=== PATIENT | female | born 1950 | race Caucasian/White ===

== ENCOUNTER 2022-04-12 14:31 | Emergency (ER) | payer MEDICAID ==
[~2022-04-12] VITALS: Ht 165.1 cm; Wt 83.9 kg
--- NOTE | 2022-04-12 14:50 | NUR ---
BIBFAMILY C/O RIGHT FLANK AND RLQ PAIN X 2 HRS. PLACED IN BED, AAOX4, BREATHING EVEN AND UNLABORED SATURATING AT 96%RA, IN PAIN 9/10 PS.
--- NOTE | 2022-04-12 15:45 | NUR ---
BLOOD DRAWN AND SENT TO LAB
[2022-04-12] MEDS ORDERED: ONDANSETRON HCL/PF 4 MG/2 ML VIAL IVP ONE ×2 (16:00→21:00)
[2022-04-12] MEDS ORDERED: MORPHINE SULFATE INJ 2 MG/ML DISP.SYRIN IV ONE ×2 (16:00→21:00)
--- NOTE | 2022-04-12 16:00 | NUR ---
PATIENT TAKEN TO CT VIA BEAR
[2022-04-12 16:04] LABS: BASOPHILS % (AUTO) 0.1 % (0.0-2.0); EOSINOPHILS % (AUTO) 0.1 % (0.0-6.0); HEMATOCRIT 46 % (33-45); HEMOGLOBIN 14.7 g/dL (11.5-14.8); LYMPHOCYTES # (AUTO) 1.3 K/uL (0.8-4.8); LYMPHOCYTES % (AUTO) 7.6 % (20.0-44.0); MEAN CORPUSCULAR HGB CONC 32 g/dl (31.0-36.0); MEAN CORPUSCULAR VOLUME 87 fL (82-100); MONOCYTES # (AUTO) 0.5 K/uL (0.1-1.30); MONOCYTES % (AUTO) 3.3 % (2.0-12.0); NEUTROPHILS # (AUTO) 14.7 K/uL (1.8-8.9); NEUTROPHILS % (AUTO) 88.9 % (43.0-81.0); PLATELET COUNT (AUTO) 257 K/uL (150-450); RED BLOOD CELL COUNT(AUTO) 5.25 MIL/uL (4.0-5.2); WHITE BLOOD COUNT (AUTO) 16.5 K/uL (4.3-11.0)
[2022-04-12] MEDS ORDERED: MORPHINE SULFATE INJ 4 MG/ML DISP.SYRIN ONE ×2 (16:14→20:54)
[2022-04-12] MEDS ORDERED: ONDANSETRON HCL/PF 4 MG/2 ML VIAL ONE ×2 (16:14→20:54)
[2022-04-12 16:16] LABS: BILIRUBIN,URINE NEGATIVE (NEGATIVE); COLOR,URINE YELLOW (YELLOW); LEUKOCYTE ESTERASE ,URINE NEGATIVE (NEGATIVE); NITRITE, URINE NEGATIVE (NEGATIVE); PROTEIN,URINE 1+ mg/dl (NEGATIVE); UGLUCOSE NEGATIVE (NEGATIVE); UROBILINOGEN,URINE 0.2 EU/dL (0.2)
[2022-04-12 16:36] LABS: CALCIUM, SERUM 9.2 mg/dL (8.5-10.1); CREATININE 1.1 mg/dL (0.6-1.3); POTASSIUM 3.7 mmol/L (3.5-5.1)
[2022-04-12 16:38] LABS: BACTERIA,URINE RARE /HPF (None Seen); MUCUS,URINE Few /LPF (None Seen); RBC,URINE 81-100 /HPF (0-2); WBC,URINE 0-2 /HPF (0-3)
[2022-04-12 16:51] LABS: BILIRUBIN,DIRECT 0.1 mg/dL (0.0-0.2); BILIRUBIN,TOTAL 0.4 mg/dL (0.2-1.0); TOTAL PROTEIN, SERUM 7.9 g/dL (6.4-8.2)
--- NOTE | 2022-04-12 18:28 | NUR ---
SWAB FOR COVID19 SENT TO LAB
--- NOTE | 2022-04-12 20:13 | NUR ---
FAXED COVID RESULTS TO APRIL FERMIN AT [phone] PHONE: [phone]
--- NOTE | 2022-04-12 21:10 | NUR ---
FAXED COVID RESULTS TO [facility] AT [phone]
--- NOTE | 2022-04-12 22:29 | NUR ---
DR TIERNEY WILLIAMSON ON PHONE CALL WITH JENY WILLIAMSON
--- NOTE | 2022-04-12 22:46 | NUR ---
FAXED STABLE FOR MEGAN NOTE TO APRIL FERMIN AT [phone] PHONE: [phone]
--- NOTE | 2022-04-12 23:02 | NUR ---
JIA, [id number]: [phone]
--- NOTE | 2022-04-13 00:23 | NUR ---
REFAXED MD'S NOTE TO [facility] AND [facility]
--- NOTE | 2022-04-13 01:04 | NUR ---
TRANSFER INFO PER ODETTE POLANCO: PT IS ACCETED AT [facility] BY [address]. GOING TO [id number]. # FOR REPORT: [phone] AUTH NUMBER FOR TRANSPORTATION: [id number] PER ER DR, DR PEREA PT IS STABLE FOR TRANSFER VIA S [facility]
--- NOTE | 2022-04-13 01:08 | NUR ---
[facility] CALLED FOR BLS GOING TO [facility] PER PRAVEEN ETA 30 MIN
[2022-04-13 01:11] VITALS: BP 150/78
--- NOTE | 2022-04-13 01:27 | NUR ---
REPORT SENDY TO PRISCILLA AT [facility]
--- NOTE | 2022-04-13 01:28 | NUR ---
[facility] AT PT'S BEDSIDE TO TRANSFER PT TO [facility]. VSS. REPORT GIVEN TO EMT FOR ROBERTO
--- NOTE | 2022-04-13 01:44 | NUR ---
PT WAS TRANSFERRED TP [facility]. DAUGHTER-IN- [employer] AT THE BED SIDE WILL ACCOMPANY THE PT
== END 2022-04-13 01:44 | disposition short-term general hospital (02) ==
LOC: ER 14:51
DX: R19.00 Intra-abdominal and pelvic swelling, mass and lump, unspecified site (principal); I10 Essential (primary) hypertension; Z20.822 Contact with and (suspected) exposure to COVID-19
CPT/HCPCS: 99285; 74176; 96374; 96375; 87426; 96376; 85025; 80048; 83690; 80076; 81001; 36415; J2270 ×2; J2405 ×2; C9803